=== PATIENT | female | born 1955 | race Caucasian/White ===

== ENCOUNTER → 2018-10-01 12:17 | Outpatient (CLI) | payer OTHER, MEDICAID, SELFPAY ==
--- NOTE | 2018-10-01 | DI.MRI.S_ITS ---
PROCEDURE: MR KNEE LT WO CON INDICATIONS: OSTEOARTHRITIS OF LEFT KNEE TECHNIQUE: Noncontrast sagittal PD fast spin echo and T2 fast spin echo with fat saturation, sagittal 3-D FLASH with fat saturation; coronal T1 spin echo and PD fast spin echo with fat saturation, and axial PD fast spin echo with fat saturation through the knee. COMPARISON: None. FINDINGS: Image quality: Excellent. Menisci: Medial extrusion of the medial meniscus is present. Linear and amorphous high signal intensity traverses the anterior horn, body, and posterior horn medial meniscus, demonstrating superior and inferior articular surface extension, indicating complex tearing. Paranasal cyst is present anteriorly to the medial meniscus. Lateral meniscus is intact. Cruciate ligaments: The anterior cruciate ligament is markedly attenuated and demonstrates mild posterior bowing, indicating partial thickness tearing. Posterior cruciate ligament is intact. Medial structures: The medial collateral ligament appears intact. Small amount of fluid surrounds the medial collateral ligament. Visualized portions of the pes anserinus tendons appear normal. Small amount of medial bursal fluid. Lateral structures: The lateral collateral ligament, long and short heads of the biceps femoris tendon appear intact. The popliteus tendon appears normal. Iliotibial band appears normal. Anterior structures: The quadriceps and patellar tendons appear intact. Patellar alignment is normal. No femoral trochlear dysplasia or ventral trochlear prominence. No edema in the infrapatellar fat pad. Bones and cartilage: No bone marrow contusions or fractures. Moderate tricompartmental periarticular osteophyte formation. Mild scattered subchondral cysts within the weightbearing aspects of the medial femoral condyle and medial tibial plateau, as well as the patellar apex. Severe diffuse articular cartilage loss overlies the weightbearing aspects of the medial femoral condyle and medial tibial plateau. Mild diffuse articular cartilage loss overlies the weightbearing aspects of the lateral femoral condyle and lateral tibial plateau. Moderate articular cartilage loss overlies the patellar apex. Mild articular cartilage loss overlies the lateral patellar facet. Joint space: There is a small knee joint effusion and a trace Rodriguez's cyst. There is a 13 mm diameter loose body at the posterior aspect of the posterior cruciate ligament. Normal appearing synovial plicae are incidentally noted. IMPRESSION: 1. Tricompartmental osteoarthritis with associated articular cartilage loss. 2. Complex tearing of medial meniscus. 3. Partial thickness anterior cruciate ligament tear. 4. MCL strain. 5. Small knee joint effusion and trace Rodriguez's cyst. Intra-articular loose body. 6. Mild medial bursitis. Dictated by: Sakina Connor M.D. on 10/01/2018 at 14:17 Approved by: Sakina Connor M.D. on 10/01/2018 at 14:23
== END ==
PROVIDERS: PCP Family Medicine; Visit Provider Orthopaedic Surgery
DX: S83.232A Complex tear of medial meniscus, current injury, left knee, initial encounter (principal); S83.512A Sprain of anterior cruciate ligament of left knee, initial encounter; S83.412A Sprain of medial collateral ligament of left knee, initial encounter; M71.562 Other bursitis, not elsewhere classified, left knee; M25.462 Effusion, left knee
CPT/HCPCS: 73721

== ENCOUNTER → 2018-10-06 10:57 | Outpatient (CLI) | payer OTHER, MEDICAID, SELFPAY ==
[2018-10-06 11:53] LABS: Add Manual Diff / Slide Review NO; Basophils Absolute Auto 100 /uL (0-100); Basophils Percent Auto 1.1 % (0-2); Eosinophils Absolute Auto 400 /uL (0-450); Eosinophils Percent Auto 4.7 % (2-4); Hematocrit 39.1 % (36-46); Hemoglobin 12.1 g/dL (12.0-16.0); Lymphocytes Absolute Auto 1800 /uL (1100-4500); Lymphocytes Percent Auto 23.3 % (25-40); Mean Corpuscular HGB Conc 30.9 % (30-36); Monocytes Absolute Auto 600 /uL (0-900); Monocytes Percent Auto 7.5 % (3-14); Neutrophils Absolute Auto 4900 /uL (1500-7000); Neutrophils Percent Auto 63.4 % (50-75); Platelet Count 349 X10^3/uL (150-400); Red Blood Cell Count 4.82 X10^6/uL (4.0-5.2); Red Cell Distribution Width 18.3 % (11.6-14.8); White Blood Cell Count 7.6 X10^3/uL (4.5-11.0)
[2018-10-06 12:18] LABS: Carbon Dioxide 27 mmol/L (22-32); Chloride 98 mmol/L (98-107); HEMOLYSIS < 15 (0-50); Potassium 4.8 mmol/L (3.4-5.1); Sodium 138 mmol/L (137-145)
[2018-10-06 12:19] LABS: Hemoglobin A1C% w Est Avg Glu 6.8 % (4.0-6.0)
== END ==
PROVIDERS: PCP Family Medicine; Visit Provider Orthopaedic Surgery
DX: M16.10 Unilateral primary osteoarthritis, unspecified hip (principal); Z01.818 Encounter for other preprocedural examination; Z01.812 Encounter for preprocedural laboratory examination; R73.9 Hyperglycemia, unspecified
CPT/HCPCS: 36415; 80051; 83036; 85025; 93005

== ENCOUNTER 2018-10-28 12:04 | Inpatient (IN) | payer OTHER, MEDICAID, SELFPAY ==
[2018-10-15 13:46] VITALS: BMI 46.5
[2018-10-28] VITALS (14 sets, daily range): BP systolic 111–153; BP diastolic 36–82; PULSE 82–98; RESP 10–21; TEMP 36.4–37.3; O2SAT 88–98; BMI 46.5
--- NOTE | 2018-10-28 | DI.RAD.S_ITS ---
PROCEDURE: XR KNEE LT 1TO2V INDICATIONS: POST OP TECHNIQUE: 2 view(s) of the knee acquired. COMPARISON: None. FINDINGS: Bones: Patient is status post knee joint arthroplasty. Hardware components are in expected positions. Visualized bony structures are intact. Soft tissues: Overlying postoperative changes are noted. IMPRESSION: Normal alignment after left total knee arthroplasty. Dictated by: Xavier Jones M.D. on 10/28/2018 at 17:02 Approved by: Xavier Jones M.D. on 10/28/2018 at 17:02
[2018-10-28] MEDS: CELECOXIB 200 MG CAPSULE PO (13:35)
[2018-10-28] MEDS: PREGABALIN 75 MG CAPSULE PO (13:36)
[2018-10-28] MEDS: ACETAMINOPHEN 325 MG TABLET 975 MG PO ×2 (13:36→20:40)
[2018-10-28] MEDS: LACTATED RINGERS 1,000 ML 42 ML IV (13:38)
--- NOTE | 2018-10-28 13:56 | PM.PREOP ---
Pre-operative Note Interval Note History & Physical reviewed/Exam performed by Physician: Yes Changes to H&P: No
--- NOTE | 2018-10-28 13:59 | P.OP_ITS ---
Operative Date/Time/Diagnoses Date of procedure: 10/28/18 Time of procedure: 16:19 Pre-op diagnosis: Left knee osteoarthritis Post-op diagnosis: same Procedure & Clinicians Procedure: Left total knee arthroplasty Same procedure as scheduled: Yes Indications: The patient presents today for total knee arthroplasty after failure of conservative treatment. The nature of the procedure including the risks and benefits, alternatives, postoperative course and expected outcome were discussed and all questions answered. Consent was obtained. Operative site confirmed and marked. Surgeon: Harley Lockwood Sheriff Detective: Amrik Denton Anesthesia Type: General, Spinal and Local Operative Notes Findings: Severe osteoarthritis with varus alignment. Closure Type: primary Specimen(s): none sent Prosthetic devices, grafts, tissues, transplants, or devices: Friedman and NephLifeBlinx Hernando BCS: 6 femoral component, 5 tibial component, 9 mm BCS polyethylene tray and 32 x 7.5 mm round patella Applied: implant(s) Estimated Blood Loss (mL): 75 Blood products transfused: none Tourniquet time (min): 26 Procedure in detail: The patient was taken to the operative suite and placed under Spinal and general anesthesia. The patient was given prophylactic antibiotics prior to surgery. The patient was also given tranexamic acid, 1 g, just prior to surgery for postoperative hemostasis. The lateral knee was prepped and the joint injected with 20 mL of 1% Lidocaine with epinephrine. The knee was then prepped and draped in usual sterile fashion. The leg was exsanguinated with an Esmarch dressing and the tourniquet raised to 250 torr. A 15 cm anterior incision was made. Next a medial trivector arthrotomy was made. The extensor mechanism was marked to ensure accurate repair. Initial exposing dissection was carried out medially and laterally. The knee was then extended and the patellar thickness was measured and a cut made removing approximately [9] mm of bone with a goal of restoring normal patellar thickness. The patella was then sized and drilled. Some excess lateral bone was excised and the patellofemoral ligament released. The tourniquet was then released. The knee was then flexed and the Friedman & NephZettaCoreaire femoral guide was placed. The anterior pins were placed and the distal rotation holes drilled. The distal cutting guide was placed and the templated distal femoral cut was made. The templating cutting block was then placed and the anterior, posterior and chamfer cuts made. The Friedman [employer]hew Vision[employer] tibial guide was placed and the alignment checked along the axis of the proximal tibial with a monet. The proximal tibial cut was then made with an oscillating saw. All meniscus and bony debris was then removed. Flexion extension gaps were checked. the knee was tight medially as expected from the deformity. Release of the MCL with an 18 gauge needle was required in addition to routine osteophyte excision and releases. The knee was a little looser medially in flexion than extension but otherwise well balanced.The soft tissues were then injected with a combination of 20 mL of half percent Marcaine with epinephrine and 20 mL of Exparel. The trial components were then placed. The knee went into full extension and flexion beyond 120?. There was Excellent medial- lateral balance throughout motion. Patellar tracking was excellent. The trial components were removed and size is confirmed for the final implants. The knee was then exsanguinated with an Esmarch dressing and the tourniquet reapplied for cementing. The knee was cleansed with Pulsavac irrigation and dried. The final components were cemented in with high viscosity vacuum mixed bone cement with antibiotics. The knee was held in extension and the patellar clamp until the cement had adequately cured. The knee was then irrigated with dilute Betadine solution. The extensor mechanism was closed with 5 interrupted #1 Vicryl A 2. Quill suture in 90 degrees of flexion. The joint was then injected with a combination of 1 g of tranexamic acid and 20 mL of quarter percent Marcaine with epinephrine. The subcutaneous tissue was closed with 2-0 Vicryl. The skin was closed with kathie and surgical adhesive. An Aquacel dressing and Darryl wrap were then applied. Complications: none Condition: stable Disposition: PACU Plan for aftercare: [facility] protocol for total knee arthroplasty.
[2018-10-28] MEDS: CLINDAMYCIN 900 MG/50 ML PIGGYBACK 50 MG IV ×2 (14:41→23:20)
[2018-10-28] MEDS: LIDOCAINE 1% W/EPI INJ 20 ML INJ (14:50)
[2018-10-28] MEDS: TRANEXAMIC ACID 1,000 MG VIAL 2000 MG INJ ×2 (15:00→15:46)
--- NOTE | 2018-10-28 15:19 | SUR.OPER ---
Supine on padded OR bed. Pillow under head, arms secured on padded armboards <90 degree abduction. Safety belt across torso. Non-operative leg secured with tape over blanket over lower leg. Operative leg secured in DeMayo/Dameon positioner. Foam padded brace at thigh of operative leg.
[2018-10-28] MEDS: BUPIVACAINE 0.25% W/ EPI 30 ML VIAL 60 ML INJ (15:44)
[2018-10-28] MEDS: POVIDONE-IODINE 15 ML, SODIUM CHLORIDE 0.9% 250 ML TOP (15:45)
[2018-10-28] MEDS: BUPIVACAINE LIPOSOME 266 MG/20 ML VIAL INJ (15:45)
[2018-10-28] MEDS: LACTATED RINGERS 1,000 ML 125 ML IV (19:04)
[2018-10-28] MEDS: OXYCODONE IR 5 MG TABLET PO (19:07)
--- NOTE | 2018-10-28 20:26 | PC.ADMIT ---
Admission Note: pt arrived to floor at 1730 from pacu. on 2l NC. saturation 90-95%. needs to be reminded to deep breathe. Pt oriented to room and hospital procedures. family in room. updated on plan of care. pt did get out of bed. has decreased sensation to left thigh, states it kind of nguyen/is numb still. pain with ambulation. given prns per MAR. did well with 2 people first out of bed. pt 1P with fww. Pt cooperative and compliant given much teaching about postop. will continue to monitor. fluids infusing. bed alarm on. side rails upx3. belongings and call light within reach.
[2018-10-28] MEDS: ASPIRIN EC 81 MG TABLET PO (20:35)
[2018-10-28] MEDS: AMITRIPTYLINE 75 MG TABLET PO (20:35)
[2018-10-28] MEDS: METFORMIN 850 MG TABLET PO (20:35)
[2018-10-28] MEDS: GEMFIBROZIL 600 MG TABLET PO (20:36)
[2018-10-28] MEDS: glipiZIDE 5 MG TABLET 10 MG PO (20:36)
[2018-10-28] MEDS: INSULIN GLARGINE 100 UNIT/ML 3ML PEN 56 UNIT SUBCUT (20:41)
[2018-10-29] MEDS: OXYCODONE IR 5 MG TABLET PO ×4 (00:37→10:59)
--- NOTE | 2018-10-29 01:15 | PC.NURSE ---
Addendum entered by Tinaa Seaman R.N. 10/29/18 04:23: States knee pain is 5/10 and describes as an aching pressure; medicated with Oxcodone. Up to BSC with walker and 1 assist. Original Note: Patient is alert and oriented. Breath sounds CTA with RA sat of 94%. HRR. Denies nausea. BT present and is passing flatus. Denies dysuria, frequency, urgency or incontinence. Is able to move self in bed. Has been up to BSC with walker and 1 assist on previous shift and denies any weakness or unsteadiness. Dressing to left knee (Aquacel + esthela wrap) is CDI. Does complain of 6/10 pain and was medicated with Oxycodone and ice packs applied for comfort. CMS is intact. Wearing bilateral calf SCD's. Fall risk score is high and bed alarm is activated.
[2018-10-29] MEDS: LACTATED RINGERS 1,000 ML 125 ML IV (04:19)
[2018-10-29 04:38] VITALS: BP 140/74; PULSE 91; RESP 16; TEMP 36.8; O2SAT 94
[2018-10-29] MEDS: LEVOTHYROXINE 25 MCG TABLET PO (06:17)
[2018-10-29] MEDS: LEVOTHYROXINE 100 MCG TABLET 200 MCG PO (06:17)
[2018-10-29] MEDS: CLINDAMYCIN 900 MG/50 ML PIGGYBACK 50 MG IV (06:18)
[2018-10-29 06:33] LABS: Hematocrit 33.2 % (36-46); Hemoglobin 10.3 g/dL (12.0-16.0)
[2018-10-29] MEDS: ACETAMINOPHEN 325 MG TABLET 975 MG PO ×2 (07:39→13:13)
[2018-10-29] MEDS: MELOXICAM 7.5 MG TABLET 15 MG PO (07:39)
[2018-10-29] MEDS: ASPIRIN EC 81 MG TABLET PO (07:40)
[2018-10-29] MEDS: GEMFIBROZIL 600 MG TABLET PO (07:42)
[2018-10-29] MEDS: FLUTICASONE 120 SPRAY/16 GM SPRAY.SUSP NASAL (07:42)
[2018-10-29] MEDS: glipiZIDE 5 MG TABLET 10 MG PO (07:43)
[2018-10-29] MEDS: LORATADINE 10 MG TABLET PO (07:44)
[2018-10-29] MEDS: hydroCHLOROthiazide 25 MG TABLET 12.5 MG PO (07:44)
[2018-10-29] MEDS: LOSARTAN 50 MG TABLET 100 MG PO (07:45)
[2018-10-29] MEDS: METFORMIN 850 MG TABLET PO (07:46)
[2018-10-29 08:57] VITALS: BP 138/58; PULSE 95; RESP 16; TEMP 36.6; O2SAT 93
[2018-10-29 11:57] VITALS: BP 135/47; RESP 17; TEMP 36.4; O2SAT 93
--- NOTE | 2018-10-29 12:51 | PT.IIE ---
Current Diagnoses Bilateral primary osteoarthritis of knee (10/28/18) Surgery Performed Operation Date: 10/28/18 14:30 Actual Procedures p Total Knee Arthroplasty(Left) - Harley Lockwood MD Surgical History (Last Updated 10/15/18 @ 14:21 by Eri Boss RN) History of arthroscopy of both knees (Acute) Hx of tonsillectomy (Acute) Hx of tubal ligation (Acute) Medical History (Last Updated 10/15/18 @ 14:21 by Eri Boss RN) Arthritis (Acute) Elevated cholesterol with high triglycerides (Acute) HTN (hypertension) (Acute) History of hysterectomy (Acute) Hypothyroidism (Acute) Osteoarthritis (Acute) Pneumonia (Acute) Physical Therapy Inpatient Evaluation/Re-Eval M1 PT/OT-IP Prior Functional Status Start: 10/29/18 12:36 Freq: NEEDED Status: Active Protocol: Document 10/29/18 11:15 HH (Rec: 10/29/18 12:51 [email or web address]) Medical Review Prior Functional Status Medical History Reviewed Yes Communication No deficits noted. Able to make needs known Mobility and Gait Pt amb with SPC at all times at home and community. Used L railing and RUE on SPC for steps in front of her house. Activities of Daily Living and IADL's independent for all ADLs and IADLs with SPC. Pt also drives . Social History Household Members none Living Arrangements Mobile home Number of Floors (Floors) One Floor Number of Stairs To Enter/Railing? 3 YASH with L railing/ ramp Home Environment High Toilet Home Equipment Front Wheel Walker Straight Cane Shower Seat with Backrest Bed Rails Grab Bars In Shower Employment Status Retired Additional Social History Comment Pt lives alone in a mobile home in [place]. Has brother, children and friends in town that could assist if needed. Pt's brother with stay with pt for couple days to assist after d/c. Pt has outpatient PT scheduled in [place]. M2 PT-IP Current Condition Start: 10/29/18 12:36 Freq: NEEDED Status: Active Protocol: Document 10/29/18 11:15 HH (Rec: 10/29/18 12:51 [email or web address]) Physical Therapy Current Condition Current Condition Evaluation Date 10/29/18 Treatment Diagnosis L TKA, impaired gait and activity tolerance Onset Date 10/28/18 Weight Bearing Status Weight Bearing Status Weight Bear as Tolerated M3 PT-IP Subjective Start: 10/29/18 12:36 Freq: NEEDED Status: Active Protocol: Document 10/29/18 11:15 (Rec: 10/29/18 12:51 [id number]) Subjective Physical Therapy Visit Type Type Initial Evaluation Visit Start Time 11:15 Visit Stop Time 11:45 Total Visit Minutes 30 Notes Pt's brother and his at bedside. Pt brought in FWW. Pt already amb to bathroom prior to IE Number of [employer] Visits 0 Physical Therapy Visit Comments Patient Comments I feel good today. I wonder if i could go home today. Patient Goals To return home with her brother. Therapy Pain Assessment Pain When Pain Assessed During Mobility Pain Present Pain Present Pain Reported Location Left Knee Intensity 4 Scale Used Numeric (1 - 10) Description Acute Pain Management Techniques Modification of Treatment Re-positioning Timing of Activity with Medications M4 PT-IP Mobility and Gait Start: 10/29/18 12:36 Freq: NEEDED Status: Active Protocol: Document 10/29/18 11:15 (Rec: 10/29/18 12:51 [id number]) PT-Bed Mobility Assessment Rolling Type of Rolling Roll to Left Level of Assist Independent Supine to Sit Supine to Sit Independent Head of Bed Elevated Bedrails Scooting Scooting to Edge of Bed Independent PT-Transfer Assessment Sit to and From Stand Sit to and from Stand Standby Assistance Use of Upper Extremities Equipment Transfer Assistive Device Gait Belt Front Wheeled Walker Orthotic/Prosthetic Devices or Brace: No Transfers Transfer Destination Bed Chair Transfer Technique Stand Step Pivot Transfer Ability Level of Assist Standby Assistance Use of Upper Extremities Gait Assessment Gait Gait Assistance Required: Standby Assistance Distance (Feet) 80 Able to Maintain Weight Bearing Status Yes During Gait Assistive Devices Assistive Device Gait Belt Front Wheeled Walker Orthotic/Prosthetic Devices or Brace: No Gait Deviations General Gait Pattern Antalgic Decreased Stride Length Decreased Feet Clearance Factors Limiting Gait Function Factors Limiting Gait Function Decreased Activity Tolerance Decreased Sensation Decreased Strength Limited Range of Motion Pain Comments Gait Comments Pt amb from EOB to hallway and returned back to chair for a total of 80 ft with FWW CGA. Pt was steady with step to gait for first 50 ft then step through pattern after. Pt was very steady and has very good safety awareness. PT-Balance Assessment Sitting Balance and Reactions Static Sitting Balance Ability Normal Dynamic Sitting Balance Ability Normal Standing Balance and Reactions Static Standing Balance Ability Good Dynamic Standing Balance Ability Good Device Used FWW M5 PT-IP Objective Assessments Start: 10/29/18 12:36 Freq: NEEDED Status: Active Protocol: Document 10/29/18 11:15 (Rec: 10/29/18 12:51 [email or web address]) Orientation Orientation/Cognition Level of Alertness Alert Orientation Name Age Birthday Month Date Year Day of Week Place Situation Language Function Ability No Deficits Noted Safety Awareness Understands Safety Issues Memory Description No Deficits Noted Gross Range of Motion Upper Extremity ROM Assessment Within Functional Limits Lower Extremity ROM Assessment Left Impaired Impairments 3-95 degrees L knee Strength Upper Extremity Strength Assessment Within Functional Limits Lower Extremity Strength Assessment Left Impaired Comments Strength Comments 3+/5 for L knee ext and flexion Coordination Assessment Gross Coordination Gross Coordination WNL Sensation Assessment Sensation Gross Sensation Left LE Impaired Light Touch Intact Proprioception (Position) Impaired Sensation Description Numbness Muscle Tone Muscle Tone WNL Yes M6 PT-IP Treatment Start: 10/29/18 12:36 Freq: NEEDED Status: Active Protocol: Document 10/29/18 11:15 (Rec: 10/29/18 12:51 [email or web address]) Physical Therapy Treatment Exercises Exercises Ankle Pumps Gluteal Sets Quad Sets Heel Slides Straight Leg Raises Education Education Provided Precautions Weight Bearing Status Post-Op Packet Safety M7 PT-IP Assessment and Plan Start: 10/29/18 12:36 Freq: NEEDED Status: Active Protocol: Document 10/29/18 11:15 HH (Rec: 10/29/18 12:51 [email or web address]) PT Summary Assessment and Plan Potential Rehabilitation Potential Excellent Status of Condition at Evaluation Stable Summary Impairments Pain ROM Strength Bed Mobility Transfers Gait Activity Tolerance Assessment Summary Pt is very pleasant 63 yo female POD #2 L TKA. Pt was able to perform bed mob, transfer and gait training independently to [facility]. Pt demonstrates good understanding of safety awareness, rehab planning and will have brother to assist her at home as long as she needed. Pt was also very steady and stable during session. Pt is safe to d/c home with brother assistance and participate outpatient PT to improve mobility. Goals Bed Mobility Goal Independent Transfer Goal Independent Front Wheeled Walker Gait Goal Independent Front Wheel Walker Gait Distance 150 Days to Meet Goals 2 Frequency of Treatment Frequency Of Treatment Twice a Day Treatment Plan Physical Therapy Treatment Plan Bed Mobility Training Transfer Training Gait Training Therapeutic Exercise Balance Retraining Post Op Education Discharge Planning Hot or Cold Pack Other Recommendations and Next Treatment gait training as leticia Focus Recommendations To Nursing Amount of Assist Needed Standby Assistance Discharge Recommendations PT Discharge Recommendations Home with Assistance Outpatient PT
--- NOTE | 2018-10-29 13:19 | PC.NURSE ---
Day shift: Pt left unit in with friends and [employer]. Private car to [place]. Paperwork signed and all questions answered. Pt has all personal belongings. Has MD scrips already b/c [place].
--- NOTE | 2018-10-29 16:19 | PM.DS.1 ---
History of Present Illness Date Patient Seen: 10/29/18 Time Patient Seen: 07:40 Chief complaint: Left Total Knee Arthroplasty [id number] Narrative: Patient is a 63 year old female who is POD #1 s/p left total knee arthroplasty. Her pain has been well controlled with oxycodone, Tylenol and Meloxicam with worst of 7/10 before her morning dose of Tylenol/Meloxicam. She has been up and out of bed to the chair, bathroom, and in the halls with physical therapy. She has had no problems with urination. She denies any nausea, vomiting, chest pain, shortness of breath, or calf pain. Discharge Providers Date of admission: 10/28/18 12:04 Discharge Date: 10/29/18 Primary care physician: Aracelis Dillard MD Consults: 10/28/18 18:42 Consult to Discharge Planning Routine Comment: Consult to Physical Therapy Evaluate & Treat Comment: Physician Instructions: postop TKA protocol Consult to Respiratory Therapy Evaluate & Treat Comment: Physician Instructions: Evaluate and treat Discharge provider: Narcisa Teixeira PA-C Summary Discharge Diagnosis: s/p left total knee arthroplasty Hospital Course: ndings: Severe osteoarthritis with varus alignment. Closure Type: primary Specimen(s): none sent Prosthetic devices, grafts, tissues, transplants, or devices: Friedman [employer] Nephew Hernando BCS: 6 femoral component, 5 tibial component, 9 mm BCS polyethylene tray and 32 x 7.5 mm round patella Applied: implant(s) Estimated Blood Loss (mL): 75 Blood products transfused: none Tourniquet time (min): 26 Procedure in detail: The patient was taken to the operative suite and placed under Spinal and general anesthesia. The patient was given prophylactic antibiotics prior to surgery. The patient was also given tranexamic acid, 1 g, just prior to surgery for postoperative hemostasis. The lateral knee was prepped and the joint injected with 20 mL of 1% Lidocaine with epinephrine. The knee was then prepped and draped in usual sterile fashion. The leg was exsanguinated with an Esmarch dressing and the tourniquet raised to 250 torr. A 15 cm anterior incision was made. Next a medial trivector arthrotomy was made. The extensor mechanism was marked to ensure accurate repair. Initial exposing dissection was carried out medially and laterally. The knee was then extended and the patellar thickness was measured and a cut made removing approximately [9] mm of bone with a goal of restoring normal patellar thickness. The patella was then sized and drilled. Some excess lateral bone was excised and the patellofemoral ligament released. The tourniquet was then released. The knee was then flexed and the [employer] femoral guide was placed. The anterior pins were placed and the distal rotation holes drilled. The distal cutting guide was placed and the templated distal femoral cut was made. The templating cutting block was then placed and the anterior, posterior and chamfer cuts made. The [employer] Vision[employer] tibial guide was placed and the alignment checked along the axis of the proximal tibial with a monet. The proximal tibial cut was then made with an oscillating saw. All meniscus and bony debris was then removed. Flexion extension gaps were checked. the knee was tight medially as expected from the deformity. Release of the MCL with an 18 gauge needle was required in addition to routine osteophyte excision and releases. The knee was a little looser medially in flexion than extension but otherwise well balanced.The soft tissues were then injected with a combination of 20 mL of half percent Marcaine with epinephrine and 20 mL of Exparel. The trial components were then placed. The knee went into full extension and flexion beyond 120?. There was Excellent medial- lateral balance throughout motion. Patellar tracking was excellent. The trial components were removed and size is confirmed for the final implants. The knee was then exsanguinated with an Esmarch dressing and the tourniquet reapplied for cementing. The knee was cleansed with Pulsavac irrigation and dried. The final components were cemented in with high viscosity vacuum mixed bone cement with antibiotics. The knee was held in extension and the patellar clamp until the cement had adequately cured. The knee was then irrigated with dilute Betadine solution. The extensor mechanism was closed with 5 interrupted #1 Vicryl A 2. Quill suture in 90 degrees of flexion. The joint was then injected with a combination of 1 g of tranexamic acid and 20 mL of quarter percent Marcaine with epinephrine. The subcutaneous tissue was closed with 2-0 Vicryl. The skin was closed with kathie and surgical adhesive. An Aquacel dressing and Darryl wrap were then applied. Complications: none Condition: stable Disposition: PACU Plan for aftercare: [facility] protocol for total knee arthroplasty. Since going to the floor she has been progressing well in the post operative period. She is tolerating activity very well and has been evaluated by physical therapy. Her pain is well controlled, and she has the help of her son and a friend at home to aid in her care. Status at Discharge Cognitive/behavioral status at discharge: oriented Functional status at discharge: uses cane/walker Overall status at discharge: patient is progressing back to baseline Time Spent with Patient Less than 30 minutes Exam Vital Signs (past 8 hours): - 10/29/18 08:57 10/29/18 11:57 Temperature 97.9 F 97.5 F L Pulse Rate 95 H Respiratory Rate 16 17 Blood Pressure 138/58 L 135/47 L Pulse Oximetry 93 93 Fraction of Inspired Oxygen 28 Oxygen Delivery Method Room Air Oxygen Flow Rate 0 Narrative Exam Narrative: Pleasant 63 year old female resting comfortably in a bedside chair in no apparent distress. Extrem Other: Dressing in place over left knee is CDI. No excessive swelling, warmth or erythema in the surrounding area. Sensation intact in distal lower extremity. 2+ DP pulse. Able to freely dorsiflex and plantar flex the foot. Objective Labs Result Diagrams: 10/29/18 06:21 Labs: Laboratory Results - last 24 hr 10/29/18 06:21 Hgb 10.3 L Hct 33.2 L Discharge Plan Discharge Plan Patient Disposition: Home Discharge Med Rec/Prescriptions Prescriptions: Continued amitriptyline 75 mg Tablet 75 mg PO BEDTIME RF: 0 glipizide 10 mg Tablet 10 mg PO BID RF: 0 metformin 850 mg Tablet 850 mg PO TID RF: 0 aspirin 81 mg Tablet,Delayed Release (Dr/Ec) 81 mg PO DAILY RF: 0 gemfibrozil 600 mg Tablet 600 mg PO BID RF: 0 levothyroxine 200 mcg Tablet 225 mcg PO DAILY RF: 0 hydrochlorothiazide 25 mg Tablet 12.5 mg PO DAILY RF: 0 losartan 100 mg Tablet 100 mg PO DAILY RF: 0 fluticasone propionate 50 mcg/actuation [place],Suspension 2 spray INTRANASAL DAILY RF: 0 Lantus Solostar U-100 Insulin 100 unit/mL (3 mL) Insulin Pen 56 unit SUBCUT BEDTIME RF: 0 cetirizine 10 mg Capsule 10 mg PO DAILY RF: 0 Jardiance 10 mg Tablet 10 mg PO QAM RF: 0 Discontinued piroxicam 20 mg Capsule 20 mg PO DAILY RF: 0 Follow up/Referrals: Aracelis Dillard MD [Primary Care Provider] - Provider Discharge Instructions Diet: Diet as Tolerated Activity: Gull weight bearing as tolerated Cold/Heat Therapy: Ice pack to knee PRN Skin/Wound/Dressing Care Report to your healthcare provider any signs of infection, such as:: chills, fever, night sweats, increased pain, unusual drainage and unusual redness Dressing: Per [employer] book instructions Visit Report/Discharge Packet Instructions: DI for Knee Replacement Stand Alone Forms: Surgery Discharge Discharge Data Primary Care Provider: Aracelis Dillard Attending Provider: Harley Lockwood Admit Date/Time: 10/28/18 12:04 Discharges patient from system. Discharge Date/Time: 10/29/18 13:30 Quality VTE Deep Vein Thrombosis/Pulmonary Embolism Present on Admission: No
== END 2018-10-29 13:30 | disposition home or self-care (01) | DRG 302 ==
PROVIDERS: Admitting Provider Orthopaedic Surgery; PCP Family Medicine; Visit Provider Orthopaedic Surgery
PROC: 0SRD0JZ Replacement of Left Knee Joint with Synthetic Substitute, Open Approach (ICD-10-PCS; CPT 27447; principal; 2018-10-28 14:30)
DX: M17.12 Unilateral primary osteoarthritis, left knee (principal); E11.9 Type 2 diabetes mellitus without complications; Z79.4 Long term (current) use of insulin; E66.9 Obesity, unspecified; Z68.42 Body mass index [BMI] 45.0-49.9, adult
CPT/HCPCS: 36415; 73560; 82962; 85014; 85018; 94762; 97116; 97161; C1776; C9290; J2250; J2405; J2704; J3010

== ENCOUNTER → 2019-01-28 11:55 | Outpatient (CLI) | payer OTHER, MEDICAID, SELFPAY ==
[2018-10-28 17:30] VITALS: BMI 46.5
--- NOTE | 2019-01-28 11:57 | DI.MRI.S_ITS ---
PROCEDURE: MR KNEE RT WO CON INDICATIONS: OSTEOARTHRITIS RIGHT KNEE TECHNIQUE: Noncontrast sagittal PD fast spin echo and T2 fast spin echo with fat saturation, sagittal 3-D FLASH with fat saturation; coronal T1 spin echo and PD fast spin echo with fat saturation, and axial PD fast spin echo with fat saturation through the knee. COMPARISON: [facility], CR, XR KNEE 3 VIEWS RIGHT, 03/03/2018, 10:56. [facility] [place], CR, XR KNEE ARTHRITIC SERIES LT, 12/10/2018, 11:09. FINDINGS: Image quality: Excellent. Menisci: Severe, extensive chronic degenerative tearing of the involving the body and posterior horn of the medial meniscus. There is a large oblique tear involving the anterior and posterior horns of the lateral meniscus. Cruciate ligaments: The anterior cruciate ligament is absent compatible with chronic tear. The posterior cruciate ligament appears intact. Medial structures: The medial collateral ligament appears intact. The posterior oblique ligament, semimembranosus tendon insertions, oblique popliteal ligament, and meniscocapsular junction appear intact. Visualized portions of the pes anserinus tendons appear normal. No abnormal bursal fluid. Lateral structures: The lateral collateral ligament, long and short heads of the biceps femoris tendon appear intact. The popliteus tendon appears normal; the popliteofibular ligament appears intact. The posterosuperior and anteroinferior popliteomeniscal fascicles appear intact. The arcuate and fabellofibular ligaments appear intact, on either side of the lateral inferior geniculate artery. Iliotibial band appears normal. Anterior structures: The quadriceps and patellar tendons appear intact. Patellar alignment is normal. No femoral trochlear dysplasia or ventral trochlear prominence. No edema in the infrapatellar fat pad. Bones and cartilage: No bone marrow contusions or fractures. Large tricompartmental marginal osteophytes. Full-thickness loss of articular cartilage in the medial compartment. Joint space: There is a large joint effusion. No Rodriguez's cyst. Normal appearing synovial plicae are incidentally noted. IMPRESSION: 1. Severe tricompartmental osteoarthritis with large marginal osteophytes and full-thickness loss of articular cartilage in the medial compartment. 2. Chronic anterior cruciate ligament tear. 3. 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 4. Large, extensive oblique tear of the lateral meniscus. 5. Large joint effusion. Dictated by: Lakshmi Reid MD, PhD on 01/28/2019 at 15:37 Approved by: Lakshmi Reid MD, PhD on 01/29/2019 at 10:54
== END ==
PROVIDERS: PCP Family Medicine; Visit Provider Orthopaedic Surgery
DX: M17.11 Unilateral primary osteoarthritis, right knee (principal); S83.511A Sprain of anterior cruciate ligament of right knee, initial encounter; S83.281A Other tear of lateral meniscus, current injury, right knee, initial encounter; S83.241A Other tear of medial meniscus, current injury, right knee, initial encounter; M25.461 Effusion, right knee
CPT/HCPCS: 73721

== ENCOUNTER 2019-03-17 07:02 | Inpatient (IN) | payer OTHER, MEDICAID, SELFPAY ==
[2018-10-28 17:30] VITALS: BMI 46.5
[2019-03-08 08:43] VITALS: BMI 47.1
[2019-03-17] VITALS (20 sets, daily range): BP systolic 95–186; BP diastolic 33–97; PULSE 87–103; RESP 8–20; TEMP 36.1–37.7; O2SAT 88–99; BMI 47.1; BMI 47.9
--- NOTE | 2019-03-17 07:26 | DI.RAD.S_ITS ---
PROCEDURE: XR KNEE RT 1TO2V INDICATIONS: post operative right knee TECHNIQUE: 2 views of the knee were acquired. [facility] [place]IC SERIES LT, 12/10/2018, 11:09. FINDINGS: Expected post surgical changes of the right knee are present related to a total right knee arthroplasty. The metallic prosthetic components are properly seated without periprosthetic fracture or significant lucency evident. Expected postoperative changes within the soft tissues are present there is a soft tissue air, edema, and fluid. Surgical skin kathie are seen overlying the anterior margin of the midline knee. No unexpected radiopaque foreign bodies are identified. IMPRESSION: Expected postoperative changes related to total right knee arthroplasty. Dictated by: Dario Oconnor M.D. on 03/17/2019 at 10:55 Approved by: Dario Oconnor M.D. on 03/17/2019 at 10:56
--- NOTE | 2019-03-17 07:40 | PM.PREOP ---
Pre-operative Note Interval Note History & Physical reviewed/Exam performed by Physician: Yes Changes to H&P: No
--- NOTE | 2019-03-17 07:42 | P.OP_ITS ---
Operative Date/Time/Diagnoses Date of procedure: 03/17/19 Time of procedure: 11:12 Pre-op diagnosis: Right knee osteoarthritis Post-op diagnosis: same Procedure & Clinicians Procedure: Right total knee arthroplasty Same procedure as scheduled: Yes Indications: The patient presents today for total knee arthroplasty after failure of conservative treatment. The nature of the procedure including the risks and benefits, alternatives, postoperative course and expected outcome were discussed and all questions answered. Consent was obtained. Operative site confirmed and marked. Surgeon: Harley Lockwood Fuel Cell Assembler: Amrik Denton Click Yes if Unassisted: Yes Anesthesia Type: Spinal, Peripheral nerve block and Local Operative Notes Findings: Severe osteoarthritis with varus alignment. Closure Type: primary Specimen(s): none sent Prosthetic devices, grafts, tissues, transplants, or devices: [employer]hew Hernando BCS: 6 femoral component, 4 tibial component, 9 mm BCS polyethylene tray and 32 x 9 mm round patella Applied: implant(s) Estimated Blood Loss (mL): 20 Blood products transfused: none Tourniquet time (min): 54 Procedure in detail: The patient was taken to the operative suite and placed under spinal anesthesia with an adductor nerve block. The patient was given prophylactic antibiotics prior to surgery. The patient was also given tranexamic acid, 1 g, just prior to surgery for postoperative hemostasis. The lateral knee was prepped and the joint injected with 20 mL of 1% Lidocaine with epinephrine. The knee was then prepped and draped in usual sterile fashion. The leg was exsanguinated with an Esmarch dressing and the tourniquet raised to 250 torr. A 15 cm anterior incision was made. Next a medial trivector arthrotomy was made. The extensor mechanism was marked to ensure accurate repair. Initial exposing dissection was carried out medially and laterally. The knee was then extended and the patellar thickness was measured and a cut made removing approximately 9 mm of bone with a goal of restoring normal patellar thickness. The patella was then sized and drilled. Some excess lateral bone was excised and the patellofemoral ligament released. The tourniquet was then released. The knee was then flexed and the Friedman & NephPlanex Visionaire femoral guide was placed. The anterior pins were placed and the distal rotation holes drilled. The distal cutting guide was placed and the templated distal femoral cut was made. The templating cutting block was then placed and the anterior, posterior and chamfer cuts made. The [employer] Visionaire tibial guide was placed and the alignment checked along the axis of the proximal tibial with a monet. The proximal tibial cut was then made with an oscillating saw. All meniscus and bony debris was then removed. Flexion extension gaps were checked. The knee was somewhat tight medially which was corrected with normal exposure and osteophyte removal along with some percutaneous release of the MCL with an 18 gauge needle. The soft tissues were then injected with a combination of 20 mL of half percent Marcaine with epinephrine and 20 mL of Exparel. The trial components were then placed. The knee went into full extension and flexion beyond 120?. There was good medial- lateral balance throughout motion. The knee was just slightly tighter laterally than medially in flexion. Patellar tracking was excellent. The trial components were removed and size is confirmed for the final implants. The knee was then exsanguinated with an Esmarch dressing and the tourniquet reapplied for cementing. The knee was cleansed with Pulsavac irrigation and dried. The final components were cemented in with high viscosity vacuum mixed bone cement with antibiotics. The knee was held in extension and the patellar clamp until the cement had adequately cured. The knee was then irrigated with dilute Betadine solution. The extensor mechanism was closed with 5 interrupted #1 Vicryl sutures in 90 degrees of flexion. The joint was then injected with a combination of 1 g of tranexamic acid and 20 mL of quarter percent Marcaine with epinephrine. The subcutaneous tissue was closed with 2-0 Vicryl. The skin was closed with kathie and surgical adhesive. An Aquacel dressing and Darryl wrap were then applied. Complications: none Condition: stable Disposition: PACU Plan for aftercare: [facility] protocol for total knee arthroplasty.
[2019-03-17] MEDS: ACETAMINOPHEN 325 MG TABLET 975 MG PO ×3 (07:43→20:55)
[2019-03-17] MEDS: PREGABALIN 75 MG CAPSULE PO (07:44)
[2019-03-17] MEDS: MELOXICAM 7.5 MG TABLET 15 MG PO ×2 (07:45→14:23)
[2019-03-17] MEDS: LACTATED RINGERS 1,000 ML 42 ML IV (07:46)
[2019-03-17] MEDS: CLINDAMYCIN 900 MG/50 ML PIGGYBACK 50 MG IV ×2 (09:42→18:27)
[2019-03-17] MEDS: BUPIVACAINE 0.25% W/ EPI (PF) 40 ML, BUPIVACAINE LIPOSOME 266 MG, SODIUM CHLORIDE 0.9% ... INJ (10:34)
[2019-03-17] MEDS: BUPIVACAINE 0.25% W/ EPI (PF) 20 ML, TRANEXAMIC ACID 1,000 MG, SODIUM CHLORIDE 0.9% 10 ML INJ (10:35)
[2019-03-17] MEDS: LIDOCAINE 1% W/EPI INJ 20 ML INJ (10:38)
--- NOTE | 2019-03-17 11:59 | SUR.PHASEI ---
report called to floor, RN requested that we hold patient longer until her resp rate is increased. Pt. awake, oriented, tolerating ice chips, Resp unlabored, skin warm and dry. Denies pain/nausea
--- NOTE | 2019-03-17 12:35 | SUR.PHASEI ---
transported to floor by another RN and GRAPHICS ARTIST; Resp rate occasionally goes down to 8-9; pt denies history of sleep apnea. A&O, tolerating PO well. AC RN. updated on care.
[2019-03-17] MEDS: LACTATED RINGERS 1,000 ML 125 ML IV ×2 (12:45→20:59)
[2019-03-17] MEDS: OXYCODONE IR 5 MG TABLET PO ×3 (14:10→21:48)
[2019-03-17] MEDS: LOSARTAN 50 MG TABLET 100 MG PO (14:23)
[2019-03-17] MEDS: hydroCHLOROthiazide 25 MG TABLET 12.5 MG PO (14:23)
[2019-03-17] MEDS: METFORMIN 850 MG TABLET PO ×2 (14:27→20:51)
[2019-03-17] MEDS: HYDROMORPHONE 0.5 MG INJ IV ×3 (14:39→22:10)
--- NOTE | 2019-03-17 14:44 | PC.NURSE ---
Arrival pt arrived from PACU. Denied pain, VSS. Friend in room. Around 1400, pt states pain increasing. Medicated with PO meds, around 1440, pt in tears stating she can't handle pain. Medicated with IV dilaudid, states pain decreasing down to 6/10. Admission complete. Pt aware of hospital policies regarding belongings. Educated seo consultant light. admission packet given to pt.
--- NOTE | 2019-03-17 15:18 | PT.IIE ---
Current Diagnoses Bilateral primary osteoarthritis of knee (03/17/19) Surgery Performed Operation Date: 03/17/19 09:30 Actual Procedures p Total Knee Arthroplasty(Right) - Harley Lockwood MD Surgical History (Last Updated 03/08/19 @ 08:50 by Eri Boss RN) History of arthroplasty of left knee (Acute 10/28/18) History of arthroscopy of both knees (Acute) Hx of tonsillectomy (Acute) Hx of tubal ligation (Acute) Medical History (Last Updated 03/08/19 @ 09:02 by Eri Boss RN) Anemia (Acute) Gout (Acute) Arthritis (Acute) Elevated cholesterol with high triglycerides (Acute) HTN (hypertension) (Acute) History of hysterectomy (Acute) Hypothyroidism (Acute) Osteoarthritis (Acute) Pneumonia (Acute) Physical Therapy Inpatient Evaluation/Re-Eval M1 PT/OT-IP Prior Functional Status Start: 03/17/19 18:03 Freq: NEEDED Status: Active Protocol: Document 03/17/19 15:18 AB (Rec: 03/17/19 18:20 AB [id number]) Medical Review Prior Functional Status Medical History Reviewed Yes Communication able to make needs known Mobility and Gait pt stated that she is independent with all mobilities and ambulation without AD Social History Household Members none Living Arrangements Mobile home Number of Floors (Floors) One Floor Number of Stairs To Enter/Railing? 3 steps with L rail ascending Home Environment High Toilet Walk in Shower Home Equipment Front Wheel Walker Straight Cane Shower Seat without Backrest Hand Held Shower Grab Bars Near Toilet Grab Bars In Shower Additional Social History Comment pt stated that her friend Kenisha will stay to assisted as needed M2 PT-IP Current Condition Start: 03/17/19 18:03 Freq: NEEDED Status: Active Protocol: Document 03/17/19 15:18 AB (Rec: 03/17/19 18:20 AB [id number]) Physical Therapy Current Condition Current Condition Evaluation Date 03/17/19 Treatment Diagnosis s/p R TKA; difficult in walking Onset Date 03/17/19 Weight Bearing Status Weight Bearing Status Weight Bear as Tolerated M3 PT-IP Subjective Start: 03/17/19 18:03 Freq: NEEDED Status: Active Protocol: Document 03/17/19 15:18 AB (Rec: 03/17/19 18:20 AB [id number]) Subjective Physical Therapy Visit Type Type Initial Evaluation Visit Start Time 15:18 Visit Stop Time 15:51 Total Visit Minutes 33 Number of MULTI CARE TECHNICIAN Visits 0 Physical Therapy Visit Comments Patient Comments pt agreeable to do PT Patient Goals to go home Therapy Pain Assessment Pain When Pain Assessed At Rest Pain Present Pain Present Pain Reported Location Right Knee Intensity 3 Scale Used Numeric (1 - 10) Pain Management Techniques Apply Cold Re-positioning Timing of Activity with Medications M4 PT-IP Mobility and Gait Start: 03/17/19 18:03 Freq: NEEDED Status: Active Protocol: Document 03/17/19 15:18 AB (Rec: 03/17/19 18:20 AB [id number]) PT-Bed Mobility Assessment Supine to Sit Supine to Sit Standby Assistance Bedrails Sit to Supine Sit to Supine Standby Assistance Bedrails Scooting Scooting to Edge of Bed Standby Assistance PT-Transfer Assessment Sit to and From Stand Sit to and from Stand Minimal Assistance Moderate Assistance 1 Person Assistance Use of Upper Extremities Equipment Transfer Assistive Device Bed Rail Front Wheeled Walker Orthotic/Prosthetic Devices or Brace: No Transfers Transfer Destination Toilet Transfer Technique pt ambulated using FWW Transfer Ability Level of Assist Minimal Assistance 1 Person Assistance Use of Upper Extremities Comments Mobility Comments pt completed bed mobility supine to sit SBA with use of bed rail. pt completed sit to stand min A and cues for techniques and pt ambulated to the toilet using FWW min A and cues. pt completed sit to stand from the toilet using grab bar mod A and cues. c/o increase R knee pain. pt requested to go back to bed and ambulated usin FWW min A and cues. positioned pt in bed. call light and table placed within reach. ice pack provided. Gait Assessment Gait Gait Assistance Required: Minimum Assistance Distance (Feet) 12 Able to Maintain Weight Bearing Status Yes During Gait Assistive Devices Assistive Device Gait Belt Front Wheeled Walker Orthotic/Prosthetic Devices or Brace: No Gait Deviations General Gait Pattern Antalgic Decreased Stride Length Decreased Feet Clearance Step-to Gait Factors Limiting Gait Function Factors Limiting Gait Function Decreased Activity Tolerance Decreased Strength Limited Range of Motion Pain Poor Balance Comments Gait Comments pt completed ambulation toilet <>bed ~ 12 ft x 2 using FWW min A and cues. pt presents with antalgic gait with decrease stride length. requires cues for quad activation. PT-Balance Assessment Sitting Balance and Reactions Static Sitting Balance Ability Good Dynamic Sitting Balance Ability Good Standing Balance and Reactions Static Standing Balance Ability Fair Dynamic Standing Balance Ability Fair Device Used FWW M5 PT-IP Objective Assessments Start: 03/17/19 18:03 Freq: NEEDED Status: Active Protocol: Document 03/17/19 15:18 AB (Rec: 03/17/19 18:20 AB [id number]) Orientation Orientation/Cognition Level of Alertness Alert Orientation Name Age Birthday Month Date Year Day of Week Place Situation Language Function Ability No Deficits Noted Safety Awareness Understands Safety Issues Memory Description No Deficits Noted Gross Range of Motion Lower Extremity ROM Assessment Right Impaired Impairments R knee flexion 60 deg R knee extension: ~ 20 deg less to 0 Strength Lower Extremity Strength Assessment Right Impaired Hip 3+/5 Knee 3+/5 Coordination Assessment Gross Coordination Gross Coordination WNL Sensation Assessment Sensation Gross Sensation WNL Muscle Tone Muscle Tone WNL Yes M6 PT-IP Treatment Start: 03/17/19 18:03 Freq: NEEDED Status: Active Protocol: Document 03/17/19 15:18 AB (Rec: 03/17/19 18:20 AB [id number]) Physical Therapy Treatment Exercises Exercises Quad Sets Heel Slides Education Education Provided Precautions Weight Bearing Status Post-Op Packet Safety M7 PT-IP Assessment and Plan Start: 03/17/19 18:03 Freq: NEEDED Status: Active Protocol: Document 03/17/19 15:18 AB (Rec: 03/17/19 18:20 AB [id number]) PT Summary Assessment and Plan Potential Rehabilitation Potential Good Status of Condition at Evaluation Stable Summary Impairments Pain ROM Strength Balance Coordination Sensation Tone Cognition Bed Mobility Transfers Gait Activity Tolerance Assessment Summary pt is requirin min to mod A with mobility. c/o increase pain on R knee. pt plans to go home and her friend will assist her. pt has not set up outpt PT but stated that she will do it when she gets home and have to determined outpt PT insurance coverage. pt will likely improve during hospital stay and caregiver training will be conducted when appropriate. will also complete stair climbing training prior to d/c. Goals Bed Mobility Goal Independent Transfer Goal Independent Front Wheeled Walker Gait Goal Independent Front Wheel Walker Gait Distance 150 Other Goals up/down 3 steps with L rail ascending Days to Meet Goals 5 Frequency of Treatment Frequency Of Treatment Twice a Day Treatment Plan Physical Therapy Treatment Plan Bed Mobility Training Transfer Training Gait Training Therapeutic Exercise Balance Retraining Post Op Education Discharge Planning Hot or Cold Pack Neuromuscular Re-ed Coordination Retraining Manual Therapy Other Recommendations and Next Treatment ambulation, caregiver training Focus , stair climbing training Recommendations To Nursing Amount of Assist Needed 1 Person Assist Discharge Recommendations PT Discharge Recommendations Home with Assistance Outpatient PT
--- NOTE | 2019-03-17 19:21 | PC.NURSE ---
Evening Shift Note: Pt checked on and assessed, pt is POD 0 for R TKA. Pt states pain is 3/10 up to 7/10 with activity. Pt OOB with PT. Initially given 0.5 mg IV dilaudid with pain down to 3/10. Given oxycodone po 5 mg when due to keep pain level at a tolerable level for patient and limit iv narcotic use. Pt voided in BSC when up with PT this afternoon. Tolerating diet, denies nausea. VSS. Pt on 2 L NC when sleeping for desaturation to 89% when sleeping on RA. Pt with SPO2 96% when sleeping with 2 L NC. Pt is currently sleeping after eating supper.
[2019-03-17] MEDS: AMITRIPTYLINE 75 MG TABLET PO (20:51)
[2019-03-17] MEDS: ALLOPURINOL 100 MG TABLET PO (20:51)
[2019-03-17] MEDS: INSULIN GLARGINE 100 UNIT/ML 3ML PEN 60 UNIT SUBCUT (20:51)
[2019-03-17] MEDS: ASPIRIN EC 81 MG TABLET PO (20:55)
[2019-03-18 00:50] VITALS: O2SAT 97
[2019-03-18 01:02] VITALS: BP 146/80; PULSE 92; RESP 18; TEMP 36.9; O2SAT 97
[2019-03-18] MEDS: OXYCODONE IR 5 MG TABLET PO ×4 (01:05→12:17)
[2019-03-18] MEDS: CLINDAMYCIN 900 MG/50 ML PIGGYBACK 50 MG IV (02:23)
[2019-03-18 03:05] VITALS: BP 143/68; PULSE 92; RESP 17; TEMP 36.5; O2SAT 97
[2019-03-18] MEDS: LACTATED RINGERS 1,000 ML 125 ML IV (06:58)
[2019-03-18 07:02] LABS: Hematocrit 31.6 % (36-46); Hemoglobin 9.8 g/dL (12.0-16.0)
[2019-03-18 07:10] VITALS: PULSE 90; RESP 18; O2SAT 98
[2019-03-18 07:25] VITALS: O2SAT 94
[2019-03-18 07:45] VITALS: BP 137/67; PULSE 94; RESP 18; TEMP 37; O2SAT 93
[2019-03-18] MEDS: FLUTICASONE 120 SPRAY/16 GM SPRAY.SUSP NASAL (08:16)
[2019-03-18] MEDS: LOSARTAN 50 MG TABLET 100 MG PO (08:22)
[2019-03-18] MEDS: LEVOTHYROXINE 100 MCG TABLET 200 MCG PO (08:22)
[2019-03-18] MEDS: hydroCHLOROthiazide 25 MG TABLET 12.5 MG PO (08:22)
[2019-03-18] MEDS: LEVOTHYROXINE 25 MCG TABLET PO (08:22)
[2019-03-18] MEDS: ASPIRIN EC 81 MG TABLET PO (08:22)
[2019-03-18] MEDS: METFORMIN 850 MG TABLET PO (08:22)
[2019-03-18] MEDS: glipiZIDE 5 MG TABLET 10 MG PO (08:23)
[2019-03-18] MEDS: LORATADINE 10 MG TABLET PO (08:23)
[2019-03-18] MEDS: ACETAMINOPHEN 325 MG TABLET 975 MG PO (08:23)
[2019-03-18] MEDS: MELOXICAM 7.5 MG TABLET 15 MG PO (08:27)
--- NOTE | 2019-03-18 10:12 | PC.NURSE ---
Pt given 1 oxycodone for complaints of discomfort. R.knee dressing with aquacel and acewrap.. Pt states that she does not have any numbness or tingling to extremity but only feels slight movement when touching lower part of her leg... Will recheck again, pts pulses both strong.
--- NOTE | 2019-03-18 10:30 | PT.IPTN ---
Current Diagnoses Bilateral primary osteoarthritis of knee (03/17/19) Surgery Performed Operation Date: 03/17/19 09:30 Actual Procedures p Total Knee Arthroplasty(Right) - Harley Lockwood MD Physical Therapy Treatment Note M2 PT-IP Current Condition Start: 03/17/19 18:03 Freq: NEEDED Status: Active Protocol: Document 03/17/19 15:18 AB (Rec: 03/17/19 18:20 AB [id number]) Physical Therapy Current Condition Current Condition Evaluation Date 03/17/19 Treatment Diagnosis s/p R TKA; difficult in walking Onset Date 03/17/19 Weight Bearing Status Weight Bearing Status Weight Bear as Tolerated M3 PT-IP Subjective Start: 03/17/19 18:03 Freq: NEEDED Status: Active Protocol: Document 03/18/19 10:30 GGD (Rec: 03/18/19 11:51 GGD [id number]) Subjective Physical Therapy Visit Type Type Treatment Note Visit Start Time 10:10 Visit Stop Time 10:33 Total Visit Minutes 23 Number of DICE DEALER Visits 1 Physical Therapy Visit Comments Patient Comments Pt states she been doing her HEP. Therapy Pain Assessment Pain When Pain Assessed At Rest Pain Present Pain Present Pain Reported Location Right Knee Intensity 2 Scale Used Numeric (1 - 10) Pain Management Techniques Apply Cold Re-positioning Timing of Activity with Medications M4 PT-IP Mobility and Gait Start: 03/17/19 18:03 Freq: NEEDED Status: Active Protocol: Document 03/18/19 10:30 GGD (Rec: 03/18/19 11:51 GGD [id number]) PT-Transfer Assessment Sit to and From Stand Sit to and from Stand Contact Guard Assistance 1 Person Assistance Use of Upper Extremities Equipment Transfer Assistive Device Gait Belt Front Wheeled Walker Orthotic/Prosthetic Devices or Brace: No Transfers Transfer Destination Chair Transfer Ability Level of Assist Contact Guard Assistance 1 Person Assistance Use of Upper Extremities Gait Assessment Gait Gait Assistance Required: Contact Guard Assist 1 Person Assist Distance (Feet) 23 Able to Maintain Weight Bearing Status Yes During Gait Assistive Devices Assistive Device Gait Belt Front Wheeled Walker Orthotic/Prosthetic Devices or Brace: No Gait Deviations General Gait Pattern Antalgic Decreased Stride Length Decreased Feet Clearance Step-to Gait Factors Limiting Gait Function Factors Limiting Gait Function Decreased Activity Tolerance Decreased Strength Limited Range of Motion Pain Poor Balance M5 PT-IP Objective Assessments Start: 03/17/19 18:03 Freq: NEEDED Status: Active Protocol: Document 03/17/19 15:18 AB (Rec: 03/17/19 18:20 AB [id number]) Orientation Orientation/Cognition Level of Alertness Alert Orientation Name Age Birthday Month Date Year Day of Week Place Situation Language Function Ability No Deficits Noted Safety Awareness Understands Safety Issues Memory Description No Deficits Noted Gross Range of Motion Lower Extremity ROM Assessment Right Impaired Impairments R knee flexion 60 deg R knee extension: ~ 20 deg less to 0 Strength Lower Extremity Strength Assessment Right Impaired Hip 3+/5 Knee 3+/5 Coordination Assessment Gross Coordination Gross Coordination WNL Sensation Assessment Sensation Gross Sensation WNL Muscle Tone Muscle Tone WNL Yes M6 PT-IP Treatment Start: 03/17/19 18:03 Freq: NEEDED Status: Active Protocol: Document 03/18/19 10:30 GGD (Rec: 03/18/19 11:51 GGD [id number]) Physical Therapy Treatment Exercises Exercises Ankle Pumps Quad Sets Heel Slides Seated Knee Flexion/Extension Education Education Provided Post-Op Packet M7 PT-IP Assessment and Plan Start: 03/17/19 18:03 Freq: NEEDED Status: Active Protocol: Document 03/18/19 10:30 GGD (Rec: 03/18/19 11:51 GGD [id number]) PT Summary Assessment and Plan Summary Assessment Summary Pt improving with mobility. She was able to progress gait distance. She needed cues for sit to stand and used momentum . She is safe for home D/C when medically stable. Frequency of Treatment Frequency Of Treatment Twice a Day Treatment Plan Physical Therapy Treatment Plan Bed Mobility Training Transfer Training Gait Training Therapeutic Exercise Balance Retraining Post Op Education Discharge Planning Hot or Cold Pack Neuromuscular Re-ed Coordination Retraining Manual Therapy Recommendations To Nursing Amount of Assist Needed 1 Person Assist Discharge Recommendations PT Discharge Recommendations Home with Assistance Outpatient PT
--- NOTE | 2019-03-18 10:31 | P.DS_ITS ---
History of Present Illness Date Patient Seen: 03/18/19 Time Patient Seen: 10:28 Chief complaint: [id number] Narrative: Patient's pain is mild. Denies fever chills. No nausea vomiting. Patient has a friend who is available to assist her at home. She wishes to go home today if safe to do so. Otherwise without complaints. Discharge Providers Date of admission: 03/17/19 07:02 Discharge Date: 03/18/19 Primary care physician: Aracelis Dillard MD Consults: 03/17/19 12:50 Consult to Discharge Planning Routine Comment: Consult to Physical Therapy Evaluate & Treat Comment: Physician Instructions: postop TKA protocol Consult to Respiratory Therapy Evaluate & Treat Comment: Physician Instructions: Evaluate and treat Discharge provider: Amrik Denton PA-C Summary Discharge Diagnosis: Status post right total knee arthroplasty secondary to severe right knee osteoarthritis Hospital Course: The patient presents today for total knee arthroplasty after failure of conservative treatment. The nature of the procedure including the risks and benefits, alternatives, postoperative course and expected outcome were discussed and all questions answered. Consent was obtained. Operative site confirmed and marked. Surgeon: Harley Lockwood Crewman Armoured Personnel Carrier M113: Amrik Denton Click Yes if Unassisted: Yes Anesthesia Type: Spinal, Peripheral nerve block and Local Operative Notes Findings: Severe osteoarthritis with varus alignment. Closure Type: primary Specimen(s): none sent Prosthetic devices, grafts, tissues, transplants, or devices: [employer]hew Hernando BCS: 6 femoral component, 4 tibial component, 9 mm BCS polyethylene tray and 32 x 9 mm round patella Applied: implant(s) Estimated Blood Loss (mL): 20 Blood products transfused: none Tourniquet time (min): 54 Patient admitted to the hospital for right total knee arthroplasty. Patient consented to the same. Patient taken to the operating room underwent right total knee arthroplasty. Patient back in her room recovering well as in stable condition. Patient has assistance at home. She is mobilized with physical therapy. She is ready for discharge in stable condition. Status at Discharge Cognitive/behavioral status at discharge: at baseline, oriented Functional status at discharge: uses cane/walker Overall status at discharge: patient is progressing back to baseline Time Spent with Patient Less than 30 minutes Exam Vital Signs (past 8 hours): - 03/18/19 03:05 03/18/19 07:10 03/18/19 07:25 Temperature 97.7 F Pulse Rate 92 H 90 Respiratory Rate 17 18 Blood Pressure 143/68 H Pulse Oximetry 97 98 94 03/18/19 07:45 Temperature 98.6 F Pulse Rate 94 H Respiratory Rate 18 Blood Pressure 137/67 Pulse Oximetry 93 Fraction of Inspired Oxygen 21 Oxygen Delivery Method Room Air Oxygen Flow Rate 0 Objective Labs Result Diagrams: 03/18/19 06:25 Labs: Laboratory Results - last 24 hr 03/18/19 06:25 Hgb 9.8 L Hct 31.6 L Discharge Plan Discharge Plan Patient Disposition: Home Discharge Med Rec/Prescriptions Prescriptions: Continued amitriptyline 75 mg Tablet 75 mg PO BEDTIME RF: 0 glipizide 10 mg Tablet 10 mg PO BID RF: 0 metformin 850 mg Tablet 850 mg PO TID RF: 0 aspirin 81 mg Tablet,Delayed Release (Dr/Ec) 81 mg PO DAILY RF: 0 levothyroxine 200 mcg Tablet 225 mcg PO DAILY RF: 0 hydrochlorothiazide 25 mg Tablet 12.5 mg PO DAILY RF: 0 losartan 100 mg Tablet 100 mg PO DAILY RF: 0 fluticasone propionate 50 mcg/actuation Gray,Suspension 2 spray INTRANASAL DAILY RF: 0 Lantus Solostar U-100 Insulin 100 unit/mL (3 mL) Insulin Pen 60 unit SUBCUT BEDTIME RF: 0 cetirizine 10 mg Capsule 10 mg PO DAILY RF: 0 Jardiance 10 mg Tablet 10 mg PO QAM RF: 0 allopurinol 100 mg Tablet 100 mg PO BEDTIME RF: 0 ferrous sulfate [Iron (ferrous sulfate)] 325 mg (65 mg iron) Tablet 325 mg PO DAILY RF: 0 acetaminophen [Tylenol Extra Strength] 500 mg Tablet 1,000 mg PO Q6H PRN (Reason: Pain (Scale Score 4-6)) RF: 0 Follow up/Referrals: Aracelis Dillard MD [Primary Care Provider] - Provider Discharge Instructions Diet: Diet as Tolerated Activity: Per [facility] Cold/Heat Therapy: ice prn Other treatments: Medication per [facility] Skin/Wound/Dressing Care Report to your healthcare provider any signs of infection, such as:: chills, fever, increased pain, unusual drainage and unusual redness Dressing: keep clean and dry Discharge Data Primary Care Provider: Aracelis Dillard Attending Provider: Harley Lockwood Admit Date/Time: 03/17/19 07:02 Quality VTE Deep Vein Thrombosis/Pulmonary Embolism Present on Admission: No
--- NOTE | 2019-03-18 12:56 | CM.IDA ---
Initial DCP Assessment Note: Pt is a 63 yo female, resident of [place], now POD#1 from Rt knee surgery w/ Dr Lockwood PCP: Aracelis Dillard Payer: [employer]/Medicaid Reviewed chart, pt discussed in multidisciplinary rounds this morning. Therapy has cleared pt for return home w/family/friend to assist and pt has planned for home, DC order from [facility] has already been initiated this morning. No needs expected from DC planning team although will remain available in case this changes today. ROBERTO Freeman
== END 2019-03-18 13:00 | disposition home or self-care (01) | DRG 302 ==
PROVIDERS: Admitting Provider Orthopaedic Surgery; PCP Family Medicine; Visit Provider Orthopaedic Surgery
PROC: 0SRC0JZ Replacement of Right Knee Joint with Synthetic Substitute, Open Approach (ICD-10-PCS; CPT 27447; principal; 2019-03-17 09:30)
DX: M17.11 Unilateral primary osteoarthritis, right knee (principal); E66.9 Obesity, unspecified; E11.9 Type 2 diabetes mellitus without complications; Z79.84 Long term (current) use of oral hypoglycemic drugs; Z79.4 Long term (current) use of insulin; Z68.42 Body mass index [BMI] 45.0-49.9, adult; Z96.652 Presence of left artificial knee joint; M21.161 Varus deformity, not elsewhere classified, right knee
CPT/HCPCS: 36415; 73560; 82962; 85014; 85018; 94760; 94762; 97110; 97116; 97161; C1776; C9290; J1170; J2250; J2405; J2704; J3010